=== PATIENT | male | born 1930 ===

== ENCOUNTER 2019-07-06 15:33 | Outpatient (CLI) | payer OTHER ==
[~2019-07-06] VITALS: Ht 157.5 cm; Wt 54.4 kg
== END 2019-07-06 15:48 | disposition home or self-care (01) ==
LOC: OFIC 805 15:33
DX: J31.0 Chronic rhinitis (principal); R05 Cough; H91.8X3 Other specified hearing loss, bilateral

== ENCOUNTER → 2019-08-25 | Outpatient (CLI) | payer OTHER ==
[~2019-08-25] VITALS: Ht 152.4 cm; Wt 54.4 kg
== END | disposition home or self-care (01) ==
LOC: OFIC 805 12:15
DX: J31.0 Chronic rhinitis (principal); H91.8X3 Other specified hearing loss, bilateral